=== PATIENT | female | born 1960 | race Caucasian/White ===

== ENCOUNTER 2021-07-13 11:17 | Emergency (ER) | payer OTHER, BC ==
[2021-07-13 11:24] VITALS: PULSE 86
[2021-07-13] MEDS ORDERED: Acetaminophen/HYDROcodone 325-5 MG Tab PO ONE (11:26)
--- NOTE | 2021-07-13 11:29 | EDM.PDOC ---
ED HPI GENERAL MEDICAL PROBLEM - General Chief Complaint: Lower Extremity Injury/Pain Stated Complaint: L Foot Injury Time Seen by Provider: 07/13/21 11:23 Source of Information: Reports: Patient History Limitations: Reports: No Limitations - History of Present Illness INITIAL COMMENTS - FREE TEXT/NARRATIVE: Patient [facility] with concerns of an injury to her left lower extremity. Just prior to arrival the patient was at work when she has what she relates a heavy boom fall injuring her left lower extremity. It landed on the mid tib-fib anterior region and slid down to the dorsum of the foot. She denies any paresthesias. She is able to ambulate on it although it is somewhat uncomfortable. She does not take anythi ng for pain prior to arrival. She is unsure of when his last tetanus shot was. - Related Data Allergies Allergy/AdvReac Type Severity Reaction Status Date / Time latex Allergy Cannot Verified 07/13/21 11:19 Remember Sulfa (Sulfonamide Allergy Rash Verified 11/12/15 09:34 Antibiotics) Home Meds: Home Meds Acetaminophen [Tylenol] 2 tab PO Q4HR PRN 11/12/15 [History] Levothyroxine 1 tab PO DAILY 11/12/15 [History] Omeprazole [Prilosec] 20 mg PO BID 11/12/15 [History] Past Medical History HEENT History: Reports: Impaired Vision, Other (See Below) Other HEENT History: glasses Gastrointestinal History: Reports: GERD Review of Systems - Review of Systems Review Of Systems: Comprehensive ROS is negative, except as noted in HPI. ED EXAM, GENERAL - Physical Exam Exam: See Below Exam Limited By: No Limitations General Appearance: Alert, WD/WN, No Apparent Distress Respiratory/Chest: No Respiratory Distress Cardiovascular: Normal Peripheral Pulses Peripheral Pulses: 2+: Popliteal (L), Popliteal (R), Posterior Tibial (L), Posterior Tibial (R), Dorsalis Pedis (L), Dorsalis Pedis (R) GI/Abdominal: Normal Bowel Sounds, Soft, Non-Tender (Female) Exam: Deferred Rectal (Female) Exam: Deferred Back Exam: Normal Inspection Extremities: No Pedal Edema, Normal Capillary Refill. No: Normal Inspection (Ant tib fib abrasion down to distal aspect as well as the ant aspect of the ankle flex point. No overt bony deformity. Superficial abrasions. ), Normal Range of Motion (Decreased no overt bony deformity. ) Neurological: Alert, Oriented, Normal Cognition, No Motor/Sensory Deficits Psychiatric: Anxious Skin Exam: Warm, Dry, Normal Color Lymphatic: No Adenopathy Course - Vital Signs Last Recorded V/S: Last Vital Signs Temp 96.8 F L 07/13/21 11:20 Pulse 86 07/13/21 11:20 Resp 16 07/13/21 11:20 BP 163/84 H 07/13/21 11:20 Pulse Ox 100 07/13/21 11:20 - Orders/Labs/Meds Orders: Active Orders 24 hr Category Date Time Status Ankle Min 3V Lt [CR] Stat Exams 07/13/21 11:26 Taken Tibia Fibula Lt [CR] Stat Exams 07/13/21 11:26 Taken DME for Discharge [COMM] Stat Oth 07/13/21 12:18 Ordered Meds: Medications Discontinued Medications Generic Name Dose Route Start Last Admin Trade Name Freq PRN Reason Stop Dose Admin Hydrocodone Bitart/Acetaminophen 1 tab 07/13/21 11:26 07/13/21 11:31 Acetaminophen/Hydrocodone 325-5 Mg Tab PO 07/13/21 11:27 1 tab ONETIME ONE Administration - Radiology Interpretation Free Text/Narrative:: Tib-fib and ankle initially reviewed extemporaneously by myself. Looks like there is a very small avulsion chip fracture of the very distal fibula on the lateral aspect. I do not see any other overt bony deformity. Radiological review to follow. - Re-Assessments/Exams Free Text/Narrative Re-Assessment/Exam: 07/13/21 12:29 Patient was given hydrocodone for pain. Her tetanus immunization is up-to-date per the chart. 07/13/21 12:30 I discussed with the patient's the finding of a questionable fibula fracture avulsion type on the very distal aspect. She is somewhat tender in that area. There was a rather large piece of metal/broom that struck her in the leg. We will place her in a walking boot. Have her follow-up with Ortho. Watch for signs of infection of the abrasion. She is comfortable with this plan and her questions were answered. If radiology finds anything different on her x-ray I will update her. Departure - Departure Time of Disposition: 12:21 Disposition: Home, Self-Care 01 Clinical Impression: Avulsion fracture of distal end of fibula Abrasion, lower leg, anterior Qualifiers: Encounter type: initial encounter Laterality: left Qualified Code(s): S80.812A - Abrasion, left lower leg, initial encounter - Discharge Information Instructions: RICE Therapy for Routine Care of Injuries, [id number], Tibial and Fibular Fractures, Abrasion, [id number] Referrals: Daphnie Guy [facility] THERM[facility]TER [Primary Care Provider] - Forms: ED Department Discharge Additional Instructions: RICE therapy as per discharge instructions. Tylenol and or Ibuprofen as needed for pain discomfort. Cleanse abrasion twice daily with soap and water, bacitracin and bandage until healed. Watch for infection. Waling boot at all times. Okay to take off to bath. Return to the ED if new or worsening symptoms. Contact PCP and set up ortho follow up in 1 week for follow up. Sepsis Event Note (ED) - Focused Exam Vital Signs: Vital Signs Temp Pulse Resp BP Pulse Ox 07/13/21 11:20 96.8 F L 86 16 163/84 H 100 - My Orders Last 24 Hours: My Active Orders 07/13/21 11:26 Ankle Min 3V Lt [CR] Stat Tibia Fibula Lt [CR] Stat 07/13/21 12:18 DME for Discharge [COMM] Stat - Assessment/Plan Last 24 Hours: My Active Orders 07/13/21 11:26 Ankle Min 3V Lt [CR] Stat Tibia Fibula Lt [CR] Stat 07/13/21 12:18 DME for Discharge [COMM] Stat
[2021-07-13 13:26] VITALS: BP 136/72
== END 2021-07-13 12:57 | disposition home or self-care (01) ==
LOC: LL.ED 11:17
DX: S92.112A Displaced fracture of neck of left talus, initial encounter for closed fracture (principal); S82.832A Other fracture of upper and lower end of left fibula, initial encounter for closed fracture; K21.9 Gastro-esophageal reflux disease without esophagitis; Z91.040 Latex allergy status; Z88.2 Allergy status to sulfonamides; Z79.899 Other long term (current) drug therapy; W20.8XXA Other cause of strike by thrown, projected or falling object, initial encounter; Y92.89 Other specified places as the place of occurrence of the external cause; Y99.0 Civilian activity done for income or pay
CPT/HCPCS: 73590-LT; 73610-LT; 99283; 99283-25; A9270-GY